=== PATIENT | female | born 1960 | race Caucasian/White ===

== ENCOUNTER 2023-01-23 16:53 | Outpatient (OUT) | payer OTHER, SELFPAY ==
--- NOTE | 2023-01-23 | US_ITS ---
The [address] [address] Patient Name: PHILIP MORALES MRN: [id number] date: 1960 Sex: F Assigned Patient Location: US Current Patient Location: Accession/Order Number: [id number] Exam Date: 01/23/2023 16:55 Report Date: 01/24/2023 07:30 At the request of: LORRAINE BENZ Procedure: US pelvis w/ transvaginal EXAM: US pelvis w/ transvaginal HISTORY: N95.0 COMPARISON: None. TECHNIQUE: Pelvic sonography was performed utilizing grayscale and color Doppler technique. FINDINGS: Anteverted uterus measures 6.2 x 4.1 x 4.0 cm. Uterine endometrial stripe obscured by fibroid. Posterior body/fundal intramural fibroid measuring 2.1 cm. Right ovary measures 2.7 x 1.0 x 1.3 cm. Normal right ovarian parenchyma. Left ovary measures 1.5 x 2.1 x 1.4 cm. Normal left ovarian parenchyma. No significant free fluid within the pelvis. US/US pelvis w/ transvaginal IMPRESSION: 1. Endometrium is not well visualized and obscured by adjacent fibroid. 2. Normal ovaries. Electronically authenticated by: GAMAL PAZ Date: 01/24/2023 07:30
== END 2023-01-23 16:54 | disposition home or self-care (01) ==
LOC: US 16:53
PROVIDERS: PCP Family Medicine; Visit Provider Family Medicine
DX: N95.0 Postmenopausal bleeding (principal)
CPT/HCPCS: 76830; 76856

== ENCOUNTER 2023-04-14 14:59 | Outpatient (OUT) | payer OTHER, SELFPAY ==
--- NOTE | 2023-04-14 15:05 | MM_ITS ---
Patient: PHILIP MORALES Exam Date: 04/14/2023 : 1960 Gender:F Ordering : DR Venita Keating M.D. Admission #: [id number] Family : Order #: [id number] CLICK HERE TO VIEW EXAM RADIOLOGY REPORT PROCEDURE: MM TOMOSYNTHESIS SCREENING BI COMPARISON: MG MAMM SCREEN MERARY W CAD, 01/21/2019. MG MAMM SCREEN MERARY W CAD, 04/13/2020. INDICATIONS: Screening Calculator Name NCI Breast Cancer Risk Assessment Tool 5 Year Breast Cancer Risk 1.60% Lifetime Breast Cancer Risk 6.60% Personal Breast Cancer No Personal Ovarian Cancer No Treatments None Family Cancers None LOCATION: The [facility] BREAST COMPOSITION: Heterogeneously dense,which may obscure small masses. FINDINGS: DIAGNOSTIC CATEGORY 1--NEGATIVE. NO CHANGE FROM COMPARISON ASSESSMENT. Scattered benign-appearing lymph nodes are present. RIGHT BREAST: No significant suspicious finding. LEFT BREAST: No significant suspicious finding. RECOMMENDATIONS: ROUTINE MAMMOGRAM AND CLINICAL EVALUATION IN 12 MONTHS. PLEASE NOTE: A NORMAL MAMMOGRAM DOES NOT EXCLUDE THE POSSIBILITY OF BREAST CANCER. A CLINICALLY SUSPICIOUS PALPABLE LUMP SHOULD BE BIOPSIED. Dictated by: Markell Stevens MD on 04/15/2023 at 09:38 Approved by: Markell Stevens MD on 04/15/2023 at 09:51
== END 2023-04-14 15:00 | disposition home or self-care (01) ==
LOC: MAMMO 14:59
PROVIDERS: PCP Family Medicine; Visit Provider Family Medicine
DX: Z12.31 Encounter for screening mammogram for malignant neoplasm of breast (principal)
CPT/HCPCS: 77063; 77067

== ENCOUNTER 2024-04-19 09:04 | Outpatient (OUT) | payer MEDICARE, SELFPAY ==
--- NOTE | 2024-04-19 09:12 | MM_ITS ---
Patient Name: PHILIP MORALES MR#: [id number] : 1960 Exam Date: 04/19/2024 Ordering Doctor: DR Venita Keating M.D. RADIOLOGY REPORT PROCEDURE: MM TOMOSYNTHESIS SCREENING BI COMPARISON: MM TOMOSYNTHESIS SCREENING BI, 04/14/2023. INDICATIONS: Screening Calculator Name NCI Breast Cancer Risk Assessment Tool 5 Year Breast Cancer Risk 1.70% Lifetime Breast Cancer Risk 6.30% Personal Breast Cancer No Personal Ovarian Cancer No Treatments None Family Cancers None LOCATION: [facility] BREAST COMPOSITION: The breasts are heterogeneously dense,which may obscure small masses. FINDINGS: DIAGNOSTIC CATEGORY 1--NEGATIVE. NO CHANGE FROM COMPARISON ASSESSMENT. Scattered benign-appearing lymph nodes are present. RIGHT BREAST: No significant suspicious finding. LEFT BREAST: No significant suspicious finding. RECOMMENDATIONS: ROUTINE MAMMOGRAM AND CLINICAL EVALUATION IN 12 MONTHS. PLEASE NOTE: A NORMAL MAMMOGRAM DOES NOT EXCLUDE THE POSSIBILITY OF BREAST CANCER. A CLINICALLY SUSPICIOUS PALPABLE LUMP SHOULD BE BIOPSIED. Dictated by: Markell Stevens MD on 04/19/2024 at 10:08 Approved by: Markell Stevens MD on 04/19/2024 at 10:10
--- NOTE | 2024-04-19 09:13 | XR_ITS ---
The [address] [address] Patient Name: PHILIP MORALES MRN: [id number] date: 1960 Sex: F Assigned Patient Location: [facility] Current Patient Location: Accession/Order Number: [id number] Exam Date: 04/19/2024 09:31 Report Date: 04/20/2024 10:53 At the request of: LORRAINE BENZ Procedure: XR DEXA axial skeleton EXAMINATION: XR DEXA axial skeleton, 04/19/2024 9:31 AM EST HISTORY: Menopause COMPARISON: 2015. TECHNIQUE: Dual-energy X-ray absorptiometry (DEXA) bone density study performed for the axial skeleton. FINDINGS: Bone mineral density lumbar spine L1-L4 measures 0.915 g/sq cm. T score -2.2. Osteopenia. Bone mineral density of the femurs measures 0.788 g/sq cm. T score -1.7. Osteopenia XR/XR DEXA axial skeleton IMPRESSION: Osteopenia. Moderate fracture risk Pharmacologic treatment recommendations * No uniform recommendation applies to all patients. Management plans must be individualized. * Consider initiating pharmacologic treatment in postmenopausal women and men >= 50 years of age who have the following: Primary fracture prevention: * T-score <= - 2.5 at the femoral neck, total hip, lumbar spine, 33% radius (some uncertainty with existing data) by DXA. * Low bone mass (osteopenia: T-score between - 1.0 and - 2.5) at the femoral neck or total hip by DXA with a 10-year hip fracture risk >= 3% or a 10-year major osteoporosis-related fracture risk >= 20% (i.e., clinical vertebral, hip, forearm, or proximal humerus) based on the US-adapted FRAXregistered model. Secondary fracture prevention: * Fracture of the hip or vertebra regardless of BMD [4, 5]. * Fracture of proximal humerus, pelvis, or distal forearm in persons with low bone mass (osteopenia: T-score between - 1.0 and - 2.5). The decision to treat should be individualized in persons with a fracture of the proximal humerus, pelvis, or distal forearm who do not have osteopenia or low BMD [12, 13]. Virgilio GONSALVES, Jai NAJERA, Chrissy KL, Leeroy EM, Oneyda KG, AJ, Chuy ES. The clinician's guide to prevention and treatment of osteoporosis. Osteoporos Int. 2021;33(10):8630-4206. doi: 10.1007/u91849-435-22934-l. Epub 2021Oct 10. Erratum in: Osteoporos Int. 2021Jan 09;: PMID: [id number]; PMCID: [id number]. Electronically authenticated by: DANIEL GAGE Date: 04/20/2024 10:53
--- OUTSIDE RECORDS SUMMARY | 2024-04-19 09:26 | XMS_ITS | CCD ---
Author Organization [facility] Inform ion Partnership [facility] Care Team Providers Care Rat Culturist Name Role Phone DR VENITA KEATING Admitting Unavailable DR VENITA KEATING Attending Unavailable DR VENITA KEATING Primary Care Unavailable DR VENITA KEATING Consulting Unavailable Venita Keating Allergies Allergy Classification Reported Allergen(s) Allergy Type Date of Onset Reaction(s) Facility (2 sources) diphenhydrAMINE Drug Allergy 9 Unknown [facility] Other Medications Completed/Discontinued Medications Medication Drug Class(es) Dates Sig (Normalized) Sig (Original) Azithromycin (1 source) Macrolide Antimicrobial Start: 10-14-2023 End: 04-07-2024 Azithromycin Discontinued 0 PO .COMPLEX October 14, 2023 12:00am April 07, 2024 8:45am For 250 mg dose pack: take 500 mg today (day 1), then 250 mg for 4 days (days 2-5) PO Problems Active Problems Problem Classification Problem Date Documented Da te Episodic/Chronic Allergic reactions (4 sources) Contact dermatitis due to plants; Translations: [Unspecified contact dermatitis due to plants, except food] Onset: 02-03-2019 Episodic Chronic obstructive pulmonary disease and bronchiectasis (1 source) Bronchitis; Translations: [Bronchitis, not specified as acute or chronic] 10-14-2023 Episodic Disorders of lipid metabolism (2 sources) Hyperlipidemia; Translations: [Hyperlipidemia, unspecified] Chronic Headache; including migraine (2 sources) Headache; Translations: [Headache, unspecified] Episodic Menopausal disorders (2 sources) Postmenopausal bleeding; Translations: [Postmenopausal bleeding] Chronic Other female genital disorders (2 sources) Abnormal uterine bleeding; Translations: [Abnormal uterine and vaginal bleeding, unspecified] Chronic Other female genital disorders (1 source) Abnormal uterine and vaginal bleeding, unspecified Chronic Other gastrointestinal disorders (1 source) Occult blood in stools; Translations: [Other fecal abnormalities] 05-27-2023 Episodic Other screening for suspected conditions (not mental disorders or infectious disease) (7 sources) Encounter for screening for malignant neoplasm of cervix; Translations: [Encounter for screening mammogram for malignant neoplasm of breast] Onset: 04-02-2022 Episodic Residual codes; unclassified (2 sources) Body mass index 20-24 - normal; Translations: [Body mass index (BMI) 23.0-23.9, adult] Episodic Residual codes; unclassified (1 source) Menopause present; Translations: [Asymptomatic menopausal state] 04-07-2024 Episodic Residual codes; unclassified (1 source) Asymptomatic menopausal state; Translations: [Symptomatic menopausal or female climacteric states] 04-07-2024 Episodic Past or Other Problems Problem Classification Problem Date Documented Da te Episodic/Chronic Mycoses (2 sources) Tinea corporis; Translations: [Tinea corporis] Onset: 02-16-2019 Episodic Results Test Name Value Interpretation Reference Range Facil ity PAP ACOG PANEL 2: 30 to 65on 04-08-2022 . . Normal [facility] Comment on above: Result Comment: Performed at: WB Performed By: #### [id number] #### [facility] [address] [address] [address] Alejandro Malik DIAGNOSIS: Comment Normal [facility] Comment on above: Result Comment: NEGATIVE FOR INTRAEPITHE LIAL LESION OR MALIGNANCY. CELLULAR CHANGES ASSOCIATED WITH ATROPHY ARE PRESENT. CELLULAR CHANGES ASSOCIATED WITH INFLAMMATION ARE PRESENT. Performed at: WB Performed By: #### [id number] #### [facility] [address] [address] [address] Alejandro Malik HPV Aptima Negative Normal Negative [facility] Comment on above: Result Comment: This nucleic acid amplif ication test detects fourteen high-risk HPV types (16,18,31,33,35,39,45,51,52,56,58,59,66,68) without differentiation. Performed at: =G Performed By: #### [id number] #### [facility] [address] [address] [address] Alejandro Malik Methodology: Comment Normal [facility] Comment on above: Result Comment: This liquid based ThinPr ep(R) pap test was screened with the use of an image guided system. Performed at: WB Performed By: #### [id number] #### [facility] [address] [place] [address] Dr. Alejandro Malik Note: Comment Normal [facility] Comment on above: Result Comment: The Pap smear is a scree master test designed to aid in the detection of premalignant and malignant conditions of the uterine cervix. It is not a diagnostic procedure and should not be used as the sole means of detecting cervical cancer. Both false-positive and false-negative reports do occur. . Performed at: WB Performed By: #### [id number] #### [facility] [address] [place] [address] Dr. Alejandro Malik Performed by: Comment Normal [facility] Comment on above: Result Comment: Gertrude Stevens Cytotechnol ogist (ASCP) Performed at: WB Performed By: #### [id number] #### [facility] [address] [place] [address] Dr. Alejandro Malik Specimen adequacy: Comment Normal [facility] Comment on above: Result Comment: Satisfactory for evaluat ion. Endocervical component may not be distinguished in cases of atrophy. Performed at: WB Performed By: #### [id number] #### [facility] [address] [place] [address] Dr. Alejandro Malik Age Gdln ACOG Testing 30-65 Normal [facility] Comment on above: Performed By: #### [id number] #### [facility] [address] [place] [address] Dr. Alejandro Alexandra 02-12-2021 L --- Specimen: [id number] Received: 02/12/21 Status: NI Ritchie Num: [id number] Spec Type: Surgical Subm Dr: Jagdeep Robles MD Tissues: A Soft Tissue/Surgical Margin-Other than Tumor,Mass,Lip or Ruchi (LT AXILLA) Procedures: HE Stain, Gross/Micro L4 Patient Age/Sex Location Account Attending Physician Avis Diamond 60/F OR [id number] Jagdeep Robles MD SPEC NUM: [id number] RECD: 02/12/21 STATUS: NI ERMA NUM: [id number] ALBER: 02/12/21 [facility] DR: Jagdeep Robles MD ENTERED: 02/12/21 [facility] DR: SNEHA TYPE: Surgical DEPT: S ORDERED: HE Stain, Gross/Micro L4 ORDERED: HE Stain, Gross/Micro L4 Pathological Diagnosis Soft tissue, left axilla, excision: - Epidermal inclusion cyst Clinical Information Mass increasing in size, primary biopsy, D 49.2 Gross Description Received in formalin labeled with the patient's name, number and left axilla is a 1.3 x 0.7 cm unoriented may, hair-bearing skin fragment excised to a maximum depth of 1.3 cm. The skin surface demonstrates a 0.5 cm circular defect with impacted white pasty material. The subcutaneous tissue represents a 1.5 cm focally disrupted subcutaneous cyst containing pale yellow to herrera, impacted and pasty material. Also received within the container is a 0.7 cm aggregate of white pasty material. Detention Sergeant sections are submitted in one cassette labeled A1. (SM/JS) Microscopic Description One glass slide with H E stained material has been examined. The microscopic findings support the above pathologic diagnosis. [id number] Specimen: [id number] Received: 02/12/21 Status: NI Ritchie Num: [id number] Spec Type: Surgical Subm Dr: Jagdeep Robles MD Tissues: A Soft Tissue/Surgical Margin-Other than Tumor,Mass,Lip or Ruchi (LT AXILLA) Procedures: HE Stain, Gross/Micro L4 Patient: Avis Diamond [id number] (Continued) Signed (signature on file) Elisabet Allison MD 02/13/21 1627 [facility] Ibrahima 01-01-2021 L --- Specimen: [id number] Received: 01/01/21 Status: NI Ritchie Num: [id number] Spec Type: Surgical Subm Dr: Jagdeep Robles MD Tissues: A Skin-Other than Cyst, tag, debridement or plastic repair (SKIN RIGHT BASE OF Procedures: HE Stain, Gross/Micro L4 Patient Age/Sex Location Account Attending Physician Avis Diamond 60/F OR [id number] Jagdeep Robles MD SPEC NUM: [id number] RECD: 01/01/21 STATUS: NI RITCHIE NUM: [id number] ALBER: 01/01/[address] [facility] [address]: Jagdeep Robles MD ENTERED: 01/01/[address]: SNEHA TYPE: Surgical DEPT: S ENTERED BY: [id number] RECV BY: [id number] ORDERED: HE Stain, Gross/Micro L4 ORDERED: HE Stain, Gross/Micro L4 Pathological Diagnosis Skin, right base of neck, biopsy: - Epidermal inclusion cyst Clinical Information Nonhealing lesion, primary biopsy. D49.2 neoplasm of unspecified nature of skin Gross Description Received in formalin labeled with the patient's name, number and right base of neck is a 3.5 x 3 x 1.5 cm aggregate of may-pink, ragged soft tissue admixed with white pasty material and a 1.3 cm may herrera wrinkled skin fragment. Detention Sergeant sections are submitted in one cassette labeled A1. (SM/JS) Microscopic Description One glass slide with H E stained material has been examined. The microscopic findings support the above pathologic diagnosis. [id number] Specimen: [id number] Received: 01/01/21 Status: NI Ritchie Num: [id number] Spec Type: Surgical Subm Dr: Jagdeep Robles MD Tissues: A Skin-Other than Cyst, tag, debridement or plastic repair (SKIN RIGHT BASE OF Procedures: HE Stain, Gross/Micro L4 Patient: Avis Diamond [id number] (Continued) Signed (signature on file) Elisabet Allison MD 01/02/21 1549 Normal [facility] Vital Signs Date Time Vital Sign Value Performing Clinician Facility 04-07-2024 [id number] Body height 166.37 cm [facility] 04-07-2024 08:41-0400 Body mass index (BMI) [Ratio] 23.9 kg/m2 [facility] 04-07-2024 08:41-0400 Body weight 66.22 kg [facility] 04-07-2024 08:41-0400 Diastolic blood pressure 71 mm[Hg] [facility] 04-07-2024 08:41-0400 Heart rate 80 /min [facility] 04-07-2024 08:41-0400 Systolic blood pressure 108 mm[Hg] [facility] 04-03-2023 11:30-0400 Body height 166.37 cm Venita Keating Other [facility] Other 04-03-2023 11:30-0400 Body mass index (BMI) [Ratio] 24.38 kg/m2 Venita Keating Other [facility] Other 04-03-2023 11:30-0400 Body weight 67.5 kg Venita Keating Other [facility] Other 04-03-2023 11:30-0400 Diastolic blood pressure 75 mm[Hg] Venita Keating Other [facility] Other 04-03-2023 11:30-0400 Systolic blood pressure 123 mm[Hg] Venita Keating Other [facility] Other Encounters Encounter Date Encounter Type Care Provider Facility Start: 04-07-2024 End: 04-07-2024 ambulatory [facility] Work Phone: Start: 04-07-2024 End: 04-07-2024 Patient encounter procedure [facility] Work Phone: Start: 04-03-2023 End: 04-03-2023 ambulatory Venita Keating Other [facility] Other Start: 04-03-2023 Encounter for genera l adult medical examination without abnormal findings Venita Keating [facility] Start: 04-03-2023 Periodic preventive med est patient 40-64yrs Venita Keating [facility] Start: 01-28-2023 End: 01-28-2023 ambulatory Venita Keating Other [facility] Other Start: 01-28-2023 Telephone encounter Venita Keating [facility] Start: 04-02-2022 End: 04-02-[address] VENITA KEATING Facility:[facility] Start: 04-02-2022 Adult health examination Venita Keating Other [facility] Other Procedures Date Procedure Procedure Detail Performing Clinician Start: 02-11-2018 Screening for malign ant neoplasm of colon Venita Keating Other Screening for malign ant neoplasm of breast Venita eKating Other Plan of Treatment Date Care Activity Detail Author DXA Skeletal system. axial Views for bone density [facility] enter MG Breast - bilateral Screening [facility] Payers Date Payer Category Payer Unknown [id number] 1960 Unknown [id number] Medicare Anthem MCR PFFS [id number] Self-pay Self Pay [id number] Unknown [id number] Social History Date Type Detail Facility Unknown if ever smoked [facility] Other Sex Assigned At Sex Assigned At Bir th [facility] Other Start: 1960 Sex Assigned At Female F [facility] Evaluation note 04-03-2023 Note Date & Type Note Facility 04-03-2023 Evaluation note Encounter Date Diagnosis Assessment Notes Mar, Well adult exam (ICD-10 - Z00.00) We have discussed the necessity of following up with PCP regularly as well as specialists, as needed. Discussed F/U with dentistry and optometry at least yearly. Discussed all preventative measures/ cancer screenings as applicable to this patient. Emphasized the importance of a reduced fat, low carb diet to promote heart health and controlled blood sugars. Reviewed social history and ensured patient is safe within the home today. Pt denies any abuse of alcohol, nicotine, caffeine or recreational drugs. I have ensured patient is of stable mental and physical health today. We have discussed appropriate F/U schedule as well as blood work and vaccinations that apply. All questions answered and patient is sent home pleased, without concerns. Mar, Screening mammogram for breast cancer (ICD-10 - Z12.31) [facility] Other Evaluation note 01-28-2023 Note Date & Type Note Facility 01-28-2023 Evaluation note Encounter Date Diagnosis Assessment Notes Jan, Abnormal uterine bleeding (ICD-10 - N93.9) [facility] Other Evaluation note Note Date & Type Note Facility Evaluation note Diagnosis Onset Date Menopause acute Screening mammogram for breast cancer [facility] Work Phone: History general Narrative - Reported Note Date & Type Note Facility History general Narrative - Reported Type Medical History Problem Title : comp liance with medical treatment, Problem Description : compliance with medical treatment, Problem Comment : Done, Problem Status : Active,, Medical History Problem Title : Depr ession Screening, Problem Description : Depression Screening, Problem Comment : Negative, Problem Status : Active,, Medical History Problem Title : no k nown problems, Problem Description : no known problems, Problem Comment : F, Problem Status : Active,, Medical History Problem Title : past medical history E&M, Problem Description : past medical history E&M, 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 Messer, Problem Status : Active,, Medical History Problem Title : past medical history reviewed, Problem Description : past medical history reviewed, Problem Comment : reviewed - no changes required, Problem Status : Active,, Medical History Problem Title : PHQ2 Questionairre Score, Problem Description : PHQ2 Questionairre Score, Problem Comment : 0, Problem Status : Active,, Medical History Problem Title : PHQ9 Question One score, Problem Description : PHQ9 Question One score, Problem Comment : 0, Problem Status : Active,, Medical History Problem Title : PHQ9 Question Two score, Problem Description : PHQ9 Question Two score, Problem Comment : 0, Problem Status : Active,, Medical History Problem Title : Prob lems Reconciled, Problem Status : Active,, Medical History Problem Title : Unsp ecified Diagnosis, Problem Status : Active,, Surgical History TONSILLECTOMY Surgical History BASAL CELL X2 REMOVED UPPER JEANIE ST Hospitalization History SEE SURGICAL HX [facility] Other History general Narrative - Reported Note Date & Type Note Facility History general Narrative - Reported Type Medical History Tinea corporis Medical History Hyperlipidemia, unspecified Medical History Headache, unspecified Surgical History TONSILLECTOMY Surgical History BASAL CELL X2 REMOVED UPPER JEANIE ST Hospitalization History SEE SURGICAL HX [facility] Other Summary Purpose Family History Relationship Condition Age at Onset Recorded Date/T savanna father History of stroke Unknown Unknown Advance Directives Advance Directive Response Recorded Date/ Time Advance Directives No September 13 6:13am Reason for Referral Reason *FU 02/04 Last OV, pelvic US Diagnosis 1 Abnormal uterine ble eding (N93.9) Referral Organization [facility] Referring Provider First Name Venita Referring Provider Last Name Zuri Referring Provider Specialty Family [facility] Referred Organization [facility] Referred Provider Kathie Talamantes Referred Address ,[place], [place],[address] Referred Provider Specialty OB - Gynecol ogy Referral Priority Routine General Notes Jaclyn Garcia 02:33:01 PM >received today, attachments made, referrral faxed Chief Complaint and Reason for Visit Chief Complaint Welcome to medicare wellness Reason for Visit Menopause Screening mammogram for breast cancer Additional Source Comments INFORMATION SOURCE (unrecogn ized section and content) DATE CREATED AUTHOR 08/07/2021 [facility] DATE CREATED AUTHOR AUTHOR'S ORGANCAROLE ATION 04/09/2022 [facility] REASON FOR VISIT (unrecogniz ed section and content) pelvic USwellness Care Teams (unrecognized sec tion and content) Team Status: Active Member Role Status Dates Venita Keating MD Primary Care Provider Active Team Status: Inactive Member Role Status Dates Venita Keating MD Primary Care Provide r, Attending Provider Active Start: April 07, 2024 End: April 07, 2024 Goals (unrecognized section and content) Goals may be documented in a n alternate section FOR RECORDS PERTAINING TO PATIENTS WHO ARE OR HAVE BEEN ENROLLED IN A CHEMICAL DEPENDENCY/SUBSTANCEABUSE PROGRAM, SOME INFORMATION MAY BE OMITTED. This clinical summary was aggregated from multiple sources. Caution should be exercised in using it in the provision of clinical care. This summary normalizes information from multiple sources, and as a consequence, information in this document may materially change the coding, format and clinical context of patient data. In addition, data may be omitted in some cases. CLINICAL DECISIONS SHOULD BE BASED ON THE PRIMARY CLINICAL RECORDS. [facility] [employer] [facility]. provides no warranty or guarantee of the accuracy or completeness of information in this document.
== END 2024-04-19 09:05 | disposition home or self-care (01) ==
LOC: MAMMO 09:04
PROVIDERS: PCP Family Medicine; Visit Provider Family Medicine
DX: Z12.31 Encounter for screening mammogram for malignant neoplasm of breast (principal); Z78.0 Asymptomatic menopausal state; M85.80 Other specified disorders of bone density and structure, unspecified site
CPT/HCPCS: 77063; 77067; 77080

== ENCOUNTER 2025-04-25 09:59 | Outpatient (OUT) | payer MEDICARE, SELFPAY ==
--- OUTSIDE RECORDS SUMMARY | 2025-04-11 04:16 | XMS_ITS | Continuity of Care Document ---
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 Role Phone Venita Keating MD Primary Care Provider Venita Keating MD Attending Provider Care Teams Patient Care Team Team Status: Active Member Role/Relationship Status Dates Venita Keating MD Primary Care Provider Active Patient Care Team Team Status: Inactive Member Role/Relationship Status Dates Venita Keating MD Primary Care Provider Active Start: April 11, 2025 End: April 11, 2025Venita Keating MDAttending ProviderActiveStart: April 11, 2025 End: April 11, 2025 Chief Complaint and Reason for Visit Chief Complaint Admit Date Wellness April 11, 2025 8 :32am Reason for Visit Admit Date Influenza vaccination declined by amanda mims April 11, 2025 8:32am Medicare annual wellness visit, subseque nt April 11, 2025 8:32am Screening mammogram for breast cancer Oc tober 2024 8:32am Allergies, Adverse Reactions, Alerts Allergen Type Severity Reaction Last Updated Verified Status No Known Allergies Allergy Unknown April 11, 2025 8:44amYesActive Social History Smoking Status Status Start Date End Date Date of Observa tion Ex-smoker (finding) September 14, 2024 8:28am Observation Status Observation Response Date of Response Legal Sex Female (finding) [facility] 1960 Family History Relationship Condition Age at Onset Recorded Date/T savanna father History of stroke Unknown DeceasedUnknown Problems Active Problems Problem Diagnosis/Recorded Date Onset Date Status C omments Medicare annual wellness vis it, subsequent April 11, 2025 9:09am Unknown Active Screening mammogram for breast cancerOctober 2023 9:11amUnknownActive MenopauseOctober 2023 9:12amUnknownActiveMedicare welcome examOctober 2023 11:29pmUnknownActiveInfluenza vaccination declined by patientOctober 2024 9:10amUnknownActiveBronchitisMay 2023 12:48pmUnknownActiveColon polypOctober 2023 11:29pmUnknownActiveInactive/Resolved Problems Problem Diagnosis/Recorded Date Onset Date Status C omments Occult blood positive stool September 13, 2018 6:55am Unknown Resolved Problem L ist clean-up per request of Phys. EHR Cmte Medications Medication Status Dose Units Route Directions Qty Days Refills S tart Date Stop Date End Date Reason(s) Instructions Adherence Sod Picosulf-Mag Ox-Citric Ac (Clenpiq) 10 mg-3.5 gram- 12 gram/175 mL solution Discontinued 175 ML PO Daily 1 1 0 Fe bruary 2024 1:00am September 14, 2024 10:01amplease follow instructions provided by Dr. Louis's office.Wphdffwb-Cwtpjnybh-Hy 3.5-10,000-1 mg/mL-unit/mL-% drops,suspensionActive 4DROPSOTICThree times rcqru992Abor 2024 12:00amComplies with drug therapy Azithromycin 250 mg nwedlfXqhwpzhmbrgc5JC.VOIXDHX25Sub 2023 12:[facility] 2023 8:45amFor 250 mg dose pack: take 500 mg today (day 1), then 250 mg for 4 days (days 2-5) PO Vital Signs Vital Reading Result Reference Range Collection Date/Time Height 65 [in_i] April 11, 2025 8:60ygVwtwsz63.13 [facility] 2024 8:41amHeart Rate70 /dtq85-585Dtzguer 2024 8:41amBP Iztbipqi670 mm[Hg]100-140[facility] 2024 8:41amBP Wepsxqryv51 mm[Hg]60-100[facility] 2024 8:41amBMI (Body Mass Index)24.6 kg/n9Uheakwe 2024 8:41am Advance Directives Advance Directive Response Recorded Date/ Time Advance Directives No September 13 6:13am Insurance Providers Guarantor Avis Diamond Address [address] [address]Ygfsfmo Info.Home Phone: Payer Group Member ID Coverage Type Subscriber Relationship to Subscriber Effective Date Expiration Date Brady MCR PFFS [id number] Lobo Id: [id number] [address] [place] [address] Home Phone: Email: [email or web address] Encounters Encounter Location(s) Arrival/Admit Date Discharge/Departure Date Discharge/Departure Disposition Provider(s) Departed Physician/ Provider [facility] April 11, 2025 8:32am April 11, 2025 9:15am Discharged to home care or self care (routine discharge) Venita Keating MD Recent Diagnosis Onset Date Admit Date Influenza vaccination declined by patient Unknow n April 11, 2025 8:32am Medicare annual wellness visit, subsequent Unkno wn April 11, 2025 8:32am Screening mammogram for breast cancer Unknown April 11, 2025 8:32am Assessments Diagnosis Onset Date Resolution Status Admit Date Influenza vaccination declined by amanda mims acuteOctober 2024 8:32amMedicare annual wellness visit, subsequentacute April 11, 2025 8:32amScreening mammogram for breast canceracuteOctober 2024 8:32am Plan of Treatment Future Tests Future scheduled test information is unavailable Pending Tests Test Name Ordered Date Scheduled Date MM screening mammo BI w/CAD April 11, 2025 8 :59am 2 Weeks Future Visits Future appointment information is unavailable Future Procedures Future procedure information is unavailable Future Medications Future medication information is unavailable Patient Instructions Patient instructions are unavailable
--- OUTSIDE RECORDS SUMMARY | 2025-04-25 10:02 | XMS_ITS | Clinical Summary ---
Author Organization [facility] Address [address] [place] [address] Care Team Providers Care Crop Adjuster Name Role Phone Venita Keating MD Primary Care Provider [phone] Allergies Active AllergyReactionsCriticalityNoted XlzxWieuizwsKphnntqaguismmu60/22/2019 Other Reaction(s): Unknown Medications MedicationSigDispense QuantityRefillsLast FilledStart DateEnd DateStatus Multiple Vitamins-Minerals (Centrum Women) tablet OrallyActive Calcium Carbonate-Vit D-Min (Caltrate 600+D Plus Minerals) 600-800 MG-UNIT chewable tablet every 12 (twelve) hours.Active Family History Medical HistoryRelationNameCommentsDiabetesFatherRichard CenkusHeart disease FatherRichard CenkusStrokeFatherRichard CenkusRelationNameStatusCommentsFather Marck Alberto Social History Tobacco UseTypesPacks/DayYears UsedDateSmoking Tobacco: FormerCigarettes0.515.8 06/16/2001 - 04/14/2017Smokeless Tobacco: Never Tobacco Cessation:Counseling Given: Not Answered Comments:On and off smoker Alcohol UseStandard Drinks/WeekCommentsYes2 (1 standard drink = 0.6 oz pure alcohol)1-2 drinks 2-4x a month in the past year, Caffeine intake: 2-3 cups per day coffeeCommentsUnknownSex and Gender InformationValueDate RecordedSex Assigned at BirthNot on fileLegal JkqIrzxpa35/15/2023 7:31 PM EDTGender Identity Not on fileSexual OrientationNot on file Last Filed Vital Signs Vital SignReadingTime TakenCommentsBlood Ikuqrqzf719/801 4:16 PM EDT Pulse--Temperature--Respiratory Rate--Oxygen Saturation--Inhaled Oxygen Concentration--Iozvrb27.7 kg (147 lb)03/25/2023 4:16 PM MHGNjajav879.4 cm (5' 5.5 )02/25/2023 9:07 AM EDTBody Mass Index24. 9:07 AM EDT Plan of Treatment Not on file Insurance Care Teams Team MemberRelationshipSpecialtyStart DateEnd Date Venita Keating MD PCP - GeneralFamily Medicine02/25/23
--- OUTSIDE RECORDS SUMMARY | 2025-04-25 10:02 | XMS_ITS | Clinical Summary ---
Author Organization [facility] Address [address] 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
--- NOTE | 2025-04-25 10:07 | MM_ITS ---
Patient Name: PHILIP MORALES MR#: [id number] : 1960 Exam Date: 04/25/2025 Ordering Doctor: DR LORRAINE BENZ M.D. RADIOLOGY REPORT PROCEDURE: MM TOMOSYNTHESIS SCREENING BI COMPARISON: MM TOMOSYNTHESIS SCREENING BI, 04/19/2024. MM TOMOSYNTHESIS SCREENING BI, 04/14/2023. MG MAMM SCREEN MERARY W CAD, 04/13/2020. MG MAMM MERARY SCRN W CAD DIG, 07/07/2012. INDICATIONS: Screening Calculator Name NCI Breast Cancer Risk Assessment Tool 5 Year Breast Cancer Risk 1.70% Lifetime Breast Cancer Risk 6.10% Personal Breast Cancer No Personal Ovarian Cancer No Treatments None Family Cancers None LOCATION: [facility] BREAST COMPOSITION: The breasts are heterogeneously dense, which may obscure small masses. FINDINGS: DIAGNOSTIC CATEGORY 2--BENIGN FINDING. NO CHANGE FROM COMPARISON. RIGHT BREAST: No significant suspicious finding. LEFT BREAST: No significant suspicious finding. There is a similar focal asymmetry paired RECOMMENDATIONS: ROUTINE MAMMOGRAM AND CLINICAL EVALUATION IN 12 MONTHS. Dictated by: Angel Nieves MD on 04/25/2025 at 12:22 Approved by: Angel Nieves MD on 04/25/2025 at 12:26
== END 2025-04-25 10:00 | disposition home or self-care (01) ==
PROVIDERS: PCP Family Medicine; Visit Provider Family Medicine
DX: Z12.31 Encounter for screening mammogram for malignant neoplasm of breast (principal)
CPT/HCPCS: 77063; 77067